=== PATIENT | male | born 1965 | race Caucasian/White ===

== ENCOUNTER 2018-04-02 22:29 | Emergency (ER) | payer MEDICAID ==
[~2018-04-02] VITALS: Ht 167.6 cm; Wt 102.5 kg
[~2018-04-02 22:29] MED LIST: ALBU8.5H8 INH; ALBU8HFA PO; ATOR10TA87 PO; AZIT250T PO; CLON-527 PO; HYDR-569 PO; IBUP-1984 PO; LISI-600 PO; NOR5T PO
[2018-04-02] MEDS ORDERED: normal saline 1000ML IV soln IV ONE (22:50)
[2018-04-02] MEDS ORDERED: morphine 4 MG/ML inj SYRINge IV ONE (23:05)
[2018-04-02 23:08] LABS: CLARITY,URINE Clear (Clear); COLOR,URINE Yellow (Yellow); GLUCOSE, URINE Negative (Neg); KETONES,URINE Negative (Neg); LEUKOCYTE ESTERASE ,URINE Negative (Neg); NITRITES, URINE Negative (Neg); OCCULT BLOOD,URINE Negative (Neg); PROTEIN,URINE Negative (Neg); UROBILINOGEN,URINE 0.2 E.U/dL (0.2-1.0)
[2018-04-02 23:11] LABS: UA COLLECTION TYPE CLN CATCH MIDSTREAM
[2018-04-02 23:33] LABS: URINE AMPHETAMINE SCREEN NEGATIVE (Neg); URINE BARBITUATE SCREEN NEGATIVE (Neg); URINE BENZODIAZEPINES SCREEN POSITIVE (Neg); URINE CANNABINOID SCREEN NEGATIVE (Neg); URINE COCAINE SCREEN NEGATIVE (Neg); URINE METHADONE SCREEN NEGATIVE (Neg); URINE OPIATE SCREEN NEGATIVE (Neg); URINE PHENCYCLIDINE SCREEN NEGATIVE (Neg)
[2018-04-02 23:37] LABS: BASOPHILS # (AUTO) 0.1 X10'3 (0-0.2); BASOPHILS % (AUTO) 0.6 % (0-1); EOSINOPHILS # (AUTO) 0.3 X10'3 (0-0.9); EOSINOPHILS % (AUTO) 2.5 % (0-6); HEMATOCRIT 37.6 % (42.0-52.0); LYMPHOCYTES # (AUTO) 0.7 X10'3 (1.1-4.8); LYMPHOCYTES % (AUTO) 7.1 % (21-51); MEAN CORPUSCULAR HEMOGLOBIN 29.1 PG (27.0-31.0); MEAN CORPUSCULAR HGB CONC 34.6 % (33.0-36.5); MEAN CORPUSCULAR VOLUME 84.3 FL (78-98); MEAN PLATELET VOLUME 8.6 FL (7.4-10.4); MONOCYTES # (AUTO) 0.8 X10'3 (0-0.9); MONOCYTES % (AUTO) 7.8 % (2-12); NEUTROPHILS # (AUTO) 8.2 X10'3 (1.8-7.7); PLATELET COUNT 193 X10'3 (140-440); RED BLOOD COUNT 4.46 X10'6 (4.70-6.10); RED CELL DISTRIBUTION WIDTH 14.3 % (11.5-14.5)
[2018-04-03 00:01] LABS: ALANINE AMINOTRANSFERASE 28 U/L (12-78); ALBUMIN 3.9 G/DL (3.4-5.0); ALBUMIN/GLOBULIN RATIO 0.9 (1.1-1.5); ALKALINE PHOSPHATASE 87 IU/L (46-116); ANION GAP 9 (8-16); ASPARTATE AMINO TRANSFERASE 17 U/L (10-37); BILIRUBIN,TOTAL 0.3 MG/DL (0.1-1.0); BLOOD UREA NITROGEN 21 MG/DL (7-18); BUN/CREATININE RATIO 16.2 (5.4-32.0); CALCIUM 8.7 MG/DL (8.5-10.1); CHLORIDE 103 MMOL/L (99-107); GLUCOSE 97 MG/DL (70-104); POTASSIUM 3.9 MMOL/L (3.5-5.1); SODIUM 138 MMOL/L (135-145); TOTAL CARBON DIOXIDE 26.2 MMOL/L (24-32); TOTAL PROTEIN 8.1 G/DL (6.4-8.2); eGFR 58 ML/MIN
[2018-04-03] MEDS ORDERED: CEPH-571 PO (00:01)
[2018-04-03] MEDS ORDERED: HYDR-569 PO (00:01)
[2018-04-03] MEDS ORDERED: DOXY100C43 PO (00:01)
[2018-04-03] MEDS ORDERED: vancomycin inj 1,000 MG in normal saline 250ml IV soln 250 ML IV STA (00:02)
[2018-04-03] MEDS ORDERED: vancomycin/NS 1 GM ADD-VANTAGE 250 ML IV ONE (00:05)
[2018-04-03 01:39] VITALS: BP 113/69
== END 2018-04-03 02:11 | disposition home or self-care (01) ==
LOC: ER 22:29
DX: L97.519 Non-pressure chronic ulcer of other part of right foot with unspecified severity (principal); I10 Essential (primary) hypertension; J45.909 Unspecified asthma, uncomplicated; Z79.899 Other long term (current) drug therapy
CPT/HCPCS: 36415; 73630; 80053; 80305; 81003; 83605; 85025; 87040; 87077; 87186; 93005; 96365; 96366; 96375; 99285; J2270; J3370; J7030

== ENCOUNTER 2018-04-09 08:50 | Outpatient (CLI) | payer MEDICAID ==
[~2018-04-09 08:50] MED LIST changes: +CEPH-571 PO; +DOXY100C43 PO
[2018-04-09] MEDS ORDERED: mupirocin 2% ointment 22GM ONE (10:38)
== END 2018-04-09 10:47 | disposition home or self-care (01) ==
LOC: WOUND CARE 08:50 → EDSTATUS 09:00 → WOUND CARE 10:47
PROVIDERS: ATTEND Surgery
DX: E11.65 Type 2 diabetes mellitus with hyperglycemia (principal); L03.031 Cellulitis of right toe; L98.491 Non-pressure chronic ulcer of skin of other sites limited to breakdown of skin
CPT/HCPCS: 36416; 82948; 99215

== ENCOUNTER 2018-09-21 11:25 | Emergency (ER) | payer MEDICAID ==
[~2018-09-21] VITALS: Ht 167.6 cm; Wt 104.0 kg
[~2018-09-21 11:25] MED LIST changes: -DOXY100C43 PO; +HYDR-4383 PO; -HYDR-569 PO; -IBUP-1984 PO; -NOR5T PO
[2018-09-21 12:15] LABS: BASOPHILS % (AUTO) 0.3 % (0-1); EOSINOPHILS # (AUTO) 0.6 X10'3 (0-0.9); EOSINOPHILS % (AUTO) 6.3 % (0-6); HEMATOCRIT 39.9 % (42.0-52.0); HEMOGLOBIN 13.7 g/dl (14.0-17.9); LYMPHOCYTES # (AUTO) 1.7 X10'3 (1.1-4.8); LYMPHOCYTES % (AUTO) 16.9 % (21-51); MEAN CORPUSCULAR HEMOGLOBIN 29.4 PG (27.0-31.0); MEAN CORPUSCULAR HGB CONC 34.3 % (33.0-36.5); MEAN CORPUSCULAR VOLUME 85.7 FL (78-98); MEAN PLATELET VOLUME 7.9 FL (7.4-10.4); MONOCYTES # (AUTO) 0.7 X10'3 (0-0.9); MONOCYTES % (AUTO) 6.6 % (2-12); NEUTROPHILS % (AUTO) 69.9 % (42-75); PLATELET COUNT 266 X10'3 (140-440); RED BLOOD COUNT 4.65 X10'6 (4.70-6.10); RED CELL DISTRIBUTION WIDTH 13.6 % (11.5-14.5); WHITE BLOOD COUNT 10.1 X10'3 (4.5-11.0)
[2018-09-21 12:30] LABS: ALANINE AMINOTRANSFERASE 24 U/L (12-78); ALBUMIN 3.4 G/DL (3.4-5.0); ALBUMIN/GLOBULIN RATIO 0.8 (1.1-1.5); ALKALINE PHOSPHATASE 83 IU/L (46-116); ANION GAP 9 (8-16); ASPARTATE AMINO TRANSFERASE 15 U/L (10-37); BILIRUBIN,TOTAL 0.3 MG/DL (0.1-1.0); BLOOD UREA NITROGEN 18 MG/DL (7-18); CALCIUM 8.7 MG/DL (8.5-10.1); CHLORIDE 101 MMOL/L (99-107); CREATININE 1.29 MG/DL (0.60-1.10); GLUCOSE 118 MG/DL (70-104); POTASSIUM 4.5 MMOL/L (3.5-5.1); SODIUM 134 MMOL/L (135-145); TOTAL CARBON DIOXIDE 23.8 MMOL/L (24-32); TOTAL PROTEIN 7.6 G/DL (6.4-8.2); eGFR 58 ML/MIN
[2018-09-21] MEDS ORDERED: ondansetron/PF 4mg/2ml inj IV ONE (12:30)
[2018-09-21] MEDS ORDERED: morphine 4 MG/ML inj SYRINge IV ONE (12:30)
[2018-09-21 12:36] LABS: LIPASE 95 U/L (73-393)
[2018-09-21 12:37] LABS: INR 1.1 INR; PROTHROMBIN TIME 11.2 SECONDS (9.0-12.0)
[2018-09-21] MEDS ORDERED: iohexol 300mg/ml 100ml inj. ONE (12:52)
[2018-09-21] MEDS ORDERED: MESSAGE TO NURSING PO NR (13:00)
[2018-09-21 13:04] LABS: CLARITY,URINE CLEAR (Clear); COLOR,URINE YELLOW (Yellow); GLUCOSE, URINE NEGATIVE (Neg); KETONES,URINE NEGATIVE (Neg); LEUKOCYTE ESTERASE ,URINE NEGATIVE (Neg); NITRITES, URINE NEGATIVE (Neg); OCCULT BLOOD,URINE NEGATIVE (Neg); PROTEIN,URINE NEGATIVE (Neg); UROBILINOGEN,URINE 0.2 E.U/dL (0.2-1.0)
[2018-09-21 13:07] LABS: UA COLLECTION TYPE VOIDED
[2018-09-21] MEDS ORDERED: ketorolac trometh. 30mg/ml inj. IV ONE (14:05)
[2018-09-21] MEDS ORDERED: DICY10CA88 PO (14:11)
[2018-09-21] MEDS ORDERED: PANT-47 PO (14:11)
[2018-09-21 14:36] VITALS: BP 106/60
== END 2018-09-21 14:37 | disposition home or self-care (01) ==
LOC: ER 11:25
DX: K52.9 Noninfective gastroenteritis and colitis, unspecified (principal); E86.0 Dehydration; I10 Essential (primary) hypertension; J45.909 Unspecified asthma, uncomplicated
CPT/HCPCS: 36415; 74177; 80053; 81003; 83690; 85025; 85610; 96374; 96375; 99284; J1885; J2270; J2405; Q9967

== ENCOUNTER 2023-07-29 05:38 | Inpatient (IN) | payer MEDICAID ==
[2023-07-22 10:09] LABS: BASOPHILS # (AUTO) 0.1 X10'3 (0-0.2); BASOPHILS % (AUTO) 0.7 % (0-1); EOSINOPHILS # (AUTO) 0.2 X10'3 (0-0.9); EOSINOPHILS % (AUTO) 2.3 % (0-6); LYMPHOCYTES # (AUTO) 1.9 X10'3 (1.1-4.8); LYMPHOCYTES % (AUTO) 25.1 % (21-51); MEAN CORPUSCULAR HEMOGLOBIN 30.9 PG (27.0-31.0); MEAN CORPUSCULAR HGB CONC 34.8 g/dL (33.0-36.5); MEAN CORPUSCULAR VOLUME 88.8 FL (78-98); MEAN PLATELET VOLUME 8.4 FL (7.4-10.4); MONOCYTES # (AUTO) 0.7 X10'3 (0-0.9); MONOCYTES % (AUTO) 8.8 % (2-12); NEUTROPHILS # (AUTO) 4.8 X10'3 (1.8-7.7); NEUTROPHILS % (AUTO) 63.1 % (42-75); PRE OP HEMOGLOBIN 13.9 g/dL (14.0-17.9); PRE OP PLATELET COUNT 202 X10'3 (140-440); PRE OP WHITE BLOOD COUNT 7.7 10'3 (4.8-10.8)
[2023-07-22 10:24] LABS: ALBUMIN 3.8 G/DL (3.4-5.0); ALKALINE PHOSPHATASE 85 IU/L (46-116); BLOOD UREA NITROGEN 15 MG/DL (7-18); BUN/CREATININE RATIO 13.8 (10.0-20.0); CALCIUM 8.7 MG/DL (8.5-10.1); CHLORIDE 103 MMOL/L (99-107); CREATININE 1.09 MG/DL (0.60-1.10); PRE OP ALT 35 U/L (30-65); PRE OP ANION GAP 7 (8-16); PRE OP AST 24 U/L (10-37); PRE OP BILIRUB, TOTAL 0.5 MG/DL (0.0-1.0); PRE OP GLUCOSE 125 MG/DL (70-104); PRE OP POTASSIUM 4.1 MMOL/L (3.4-5.1); PRE OP SODIUM 136 MMOL/L (135-145); TOTAL CARBON DIOXIDE 25.6 MMOL/L (24-32); TOTAL PROTEIN 7.6 G/DL (6.4-8.2); eGFR 70 ML/MIN
[2023-07-22 10:25] LABS: HEMOGLOBIN A1C 5.9 % (4.5-6.2)
[~2023-07-29] VITALS: Ht 167.6 cm; Wt 122.0 kg
[2023-07-29] VITALS (49 sets, daily range): BP systolic 89–147; BP diastolic 55–90; PULSE 68–100; RESP 10–21; TEMP 96.5–98.6; O2SAT 90–100
[~2023-07-29 05:38] MED LIST changes: -ALBU8.5H8 INH; -AZIT250T PO; -CEPH-571 PO; -CLON-527 PO; +CLON-528 PO; +FLUT16SP2 BOTHNARES; -HYDR-4383 PO; -LISI-600 PO; +LISI10TA27 PO; +LORA10TA7 PO; +METF-900 PO; +TERA2CAP4 PO; +cefazolin 2gm/D5W 100mL 100 ML IV ONE; +famotidine 20mg tablet PO ONE; +ringers solution, lacted 1,000 ML IV SCH; +tranexamic acid 650mg tablet PO ONE; +vancomycin 1,500 MG in NS 300ml IV soln IV ONE
[2023-07-29] MEDS ORDERED: BUPIVACAINE/MELOXICAM 14 ML VIAL IL ONE (08:22)
[2023-07-29] MEDS ORDERED: ondansetron/PF 4mg/2ml inj ONE (10:03)
[2023-07-29] MEDS ORDERED: BUPIVAcaine/dex-water/PF 7.5 mg/ml 2ml ampul ONE (10:03)
[2023-07-29] MEDS ORDERED: desflurane 240ml liquid inh. IH ONE (10:03)
[2023-07-29] MEDS ORDERED: dexamethasone sod phosphate 10mg/ml inj ONE (10:03)
[2023-07-29] MEDS ORDERED: tetracaine 1% (10mg/ml) pres. free inj. ONE (10:05)
[2023-07-29] MEDS ORDERED: MIDAZolam 1mg/ml 10ml vial ONE ×2 (10:07→10:20)
[2023-07-29] MEDS ORDERED: fentaNYL/PF 50MCG/1 ML 2ML syringe ONE (10:20)
[2023-07-29] MEDS ORDERED: propofol inj 20 ML IV ONE ×2 (10:31)
[2023-07-29] MEDS ORDERED: ROPIVAcaine 0.5% (5mg/ml) 30ml vial ONE ×2 (10:51)
[2023-07-29] MEDS ORDERED: ePHEDrine 50MG/ML INJ. ONE (10:57)
[2023-07-29] MEDS ORDERED: ondansetron/PF 4mg/2ml inj IV PRN ×2 (11:05→12:20)
[2023-07-29] MEDS ORDERED: morphine 4 MG/ML inj SYRINge IV PRN (11:05)
[2023-07-29] MEDS ORDERED: hydrALAZINE 20mg/ml inj. IV PRN (11:05)
[2023-07-29] MEDS ORDERED: labetalol 20mg/4ml (5mg/ml) syringe IV PRN (11:05)
[2023-07-29] MEDS ORDERED: fentaNYL/PF 50MCG/1 ML 2ML syringe IV PRN ×2 (11:05)
[2023-07-29] MEDS ORDERED: ringers solution, lacted 1,000 ML IV SCH (11:05)
[2023-07-29] MEDS ORDERED: bisacodyl 10mg suppository rectal RC PRN (12:20)
[2023-07-29] MEDS ORDERED: oxyCODONE IR 5mg (immed. release) tablet PO PRN (12:20)
[2023-07-29] MEDS ORDERED: HYDROmorphone 1 mg/ml syringe IV PRN (12:20)
[2023-07-29] MEDS ORDERED: diphenhydrAMINE 25mg capsule PO PRN ×2 (12:20)
[2023-07-29] MEDS ORDERED: acetaminophen 325mg tablet PO PRN (12:20)
[2023-07-29] MEDS ORDERED: naloxone 0.4 mg/ml inj IV PRN (12:20)
[2023-07-29] MEDS ORDERED: HYDROmorphone inj. 0.5 MG/0.5 ML DISP.SYRIN IV PRN (12:20)
[2023-07-29] MEDS ORDERED: magnesium hydroxide 30ml (MOM) UD suspension PO PRN (12:20)
[2023-07-29] MEDS: acetaminophen 325mg tablet PO SCH ×2 (14:23→19:48)
[2023-07-29] MEDS: morphine 2 MG/ML inj. syringe IV PRN ×2 (14:27→17:27)
[2023-07-29] MEDS: oxyCODONE IR 5mg (immed. release) tablet PO PRN ×2 (15:48→19:48)
[2023-07-29] MEDS: ceFAZolin/D5W- 1GM premix 50 ML IV SCH (16:19)
[2023-07-29] MEDS: potassium cl 20mEq in 1/2 NS 1,000 ML IV SCH ×2 (17:40→20:20)
[2023-07-29] MEDS: metFORMIN 500mg tablet PO SCH (19:47)
[2023-07-29] MEDS ORDERED: vancomycin/NS 1 GM ADD-VANTAGE 250 ML IV SCH (20:00)
[2023-07-29] MEDS: clonazePAM 0.5mg tablet PO SCH ×2 (21:00→21:12)
[2023-07-29] MEDS: sennosides 8.6mg tablet PO SCH (21:11)
[2023-07-29] MEDS: Terazosin 1mg capsule PO SCH (21:12)
[2023-07-29] MEDS: atorvastatin 10mg tablet PO SCH (21:12)
[2023-07-30] VITALS (7 sets, daily range): BP systolic 94–129; BP diastolic 54–78; PULSE 84–112; RESP 16–19; TEMP 98.1–99.5; O2SAT 94–99
[2023-07-30] MEDS: ceFAZolin/D5W- 1GM premix 50 ML IV SCH (00:27)
[2023-07-30] MEDS: oxyCODONE IR 5mg (immed. release) tablet PO PRN ×6 (01:53→21:44)
[2023-07-30] MEDS: acetaminophen 325mg tablet PO SCH ×4 (02:09→20:26)
[2023-07-30] MEDS: potassium cl 20mEq in 1/2 NS 1,000 ML IV SCH ×3 (04:20→20:15)
[2023-07-30 06:34] LABS: BASOPHILS % (AUTO) 0.1 % (0-1); EOSINOPHILS % (AUTO) 0.3 % (0-6); HEMATOCRIT 33.7 % (42.0-52.0); HEMOGLOBIN 11.5 g/dl (14.0-17.9); LYMPHOCYTES # (AUTO) 1.6 X10'3 (1.1-4.8); LYMPHOCYTES % (AUTO) 15.3 % (21-51); MEAN CORPUSCULAR HEMOGLOBIN 30.9 PG (27.0-31.0); MEAN CORPUSCULAR HGB CONC 34.2 g/dL (33.0-36.5); MEAN CORPUSCULAR VOLUME 90.3 FL (78-98); MEAN PLATELET VOLUME 8.9 FL (7.4-10.4); MONOCYTES # (AUTO) 1.4 X10'3 (0-0.9); MONOCYTES % (AUTO) 13.5 % (2-12); NEUTROPHILS # (AUTO) 7.4 X10'3 (1.8-7.7); NEUTROPHILS % (AUTO) 70.8 % (42-75); PLATELET COUNT 173 X10'3 (140-440); RED BLOOD COUNT 3.74 X10'6 (4.70-6.10); WHITE BLOOD COUNT 10.4 X10'3 (4.5-11.0)
[2023-07-30 06:39] LABS: ANION GAP 7 (8-16); CHLORIDE 102 MMOL/L (99-107); POTASSIUM 4.2 MMOL/L (3.5-5.1); SODIUM 135 MMOL/L (135-145); TOTAL CARBON DIOXIDE 26.4 MMOL/L (24-32)
[2023-07-30] MEDS: loratadine 10mg tablet PO SCH (08:00)
[2023-07-30] MEDS: fluticasone nasal spray 16GM bottle NS SCH (08:00)
[2023-07-30] MEDS: metFORMIN 500mg tablet PO SCH ×2 (09:52→17:31)
[2023-07-30] MEDS: aspirin 325mg tablet PO SCH (09:54)
[2023-07-30] MEDS: lisinopril 10 MG tablet PO SCH (09:54)
[2023-07-30] MEDS: sennosides 8.6mg tablet PO SCH (20:25)
[2023-07-30] MEDS: atorvastatin 10mg tablet PO SCH (20:26)
[2023-07-30] MEDS: Terazosin 1mg capsule PO SCH (20:26)
[2023-07-30] MEDS: clonazePAM 0.5mg tablet PO SCH (21:43)
[2023-07-31] MEDS: acetaminophen 325mg tablet PO SCH ×2 (01:43→08:31)
[2023-07-31] MEDS: oxyCODONE IR 5mg (immed. release) tablet PO PRN ×3 (01:44→10:30)
[2023-07-31 03:14] VITALS: RESP 16; O2SAT 94
[2023-07-31 06:00] VITALS: BP 114/63; PULSE 102; RESP 18; TEMP 98.9; O2SAT 97
[2023-07-31 06:47] LABS: BASOPHILS % (AUTO) 0.3 % (0-1); EOSINOPHILS # (AUTO) 0.1 X10'3 (0-0.9); HEMOGLOBIN 11.6 g/dl (14.0-17.9); LYMPHOCYTES # (AUTO) 2.2 X10'3 (1.1-4.8); LYMPHOCYTES % (AUTO) 19.5 % (21-51); MEAN CORPUSCULAR HEMOGLOBIN 30.6 PG (27.0-31.0); MEAN CORPUSCULAR VOLUME 89.9 FL (78-98); MONOCYTES # (AUTO) 1.5 X10'3 (0-0.9); MONOCYTES % (AUTO) 13.7 % (2-12); NEUTROPHILS # (AUTO) 7.3 X10'3 (1.8-7.7); NEUTROPHILS % (AUTO) 65.5 % (42-75); PLATELET COUNT 178 X10'3 (140-440); RED BLOOD COUNT 3.78 X10'6 (4.70-6.10); RED CELL DISTRIBUTION WIDTH 13.4 % (11.5-14.5); WHITE BLOOD COUNT 11.1 X10'3 (4.5-11.0)
[2023-07-31 08:00] VITALS: RESP 18; O2SAT 97
[2023-07-31] MEDS: loratadine 10mg tablet PO SCH (08:31)
[2023-07-31] MEDS: fluticasone nasal spray 16GM bottle NS SCH (08:32)
[2023-07-31] MEDS: aspirin 325mg tablet PO SCH (08:32)
[2023-07-31] MEDS: lisinopril 10 MG tablet PO SCH (08:32)
[2023-07-31] MEDS: metFORMIN 500mg tablet PO SCH (08:33)
[2023-07-31 10:00] VITALS: BP 119/56; PULSE 107; RESP 20; TEMP 98.4; O2SAT 94
[2023-07-31 10:30] VITALS: RESP 16
[2023-07-31] MEDS ORDERED: acetaminophen 325mg tablet PO PRN (12:20)
== END 2023-07-31 11:55 | disposition home or self-care (01) | DRG 326 ==
LOC: PAS IN 05:38 → ORTHO 4S 18:08
PROVIDERS: ADMIT Orthopaedic Surgery; ATTEND Orthopaedic Surgery
PROC: 3E0T3BZ Introduction of Anesthetic Agent into Peripheral Nerves and Plexi, Percutaneous Approach (ICD-10-PCS; 2023-07-29)
PROC: 8E0Y0CZ Robotic Assisted Procedure of Lower Extremity, Open Approach (ICD-10-PCS; 2023-07-29)
PROC: 8E0YXBZ Computer Assisted Procedure of Lower Extremity (ICD-10-PCS; 2023-07-29)
PROC: 0SRC0JZ Replacement of Right Knee Joint with Synthetic Substitute, Open Approach (ICD-10-PCS; principal; 2023-07-29 10:03)
DX: M17.0 Bilateral primary osteoarthritis of knee (principal); E11.9 Type 2 diabetes mellitus without complications; F41.9 Anxiety disorder, unspecified; I10 Essential (primary) hypertension; M21.161 Varus deformity, not elsewhere classified, right knee; K21.9 Gastro-esophageal reflux disease without esophagitis; G47.30 Sleep apnea, unspecified; E78.5 Hyperlipidemia, unspecified; G89.4 Chronic pain syndrome; F31.9 Bipolar disorder, unspecified; J45.909 Unspecified asthma, uncomplicated; N40.0 Benign prostatic hyperplasia without lower urinary tract symptoms; E66.01 Morbid (severe) obesity due to excess calories; Z68.41 Body mass index [BMI] 40.0-44.9, adult; Z80.42 Family history of malignant neoplasm of prostate
CPT/HCPCS: 36415; 80051; 80053; 82948; 83036; 85025; 87081; 97110; 97161; 97530; A4215; A7000; C1758; C1776; G0378; J0690; J1100; J1170; J2250; J2270; J2405; J2704; J2795; J3010; J3370; J3480; J3490; J7120

== ENCOUNTER 2024-08-10 07:30 | Inpatient (IN) | payer MEDICAID ==
[2024-08-05 10:26] LABS: BASOPHILS % (AUTO) 0.5 % (0-1); EOSINOPHILS # (AUTO) 0.2 X10'3 (0-0.9); EOSINOPHILS % (AUTO) 2.1 % (0-6); LYMPHOCYTES # (AUTO) 2.2 X10'3 (1.1-4.8); LYMPHOCYTES % (AUTO) 29.5 % (21-51); MEAN CORPUSCULAR HEMOGLOBIN 30.5 PG (27.0-31.0); MEAN CORPUSCULAR HGB CONC 34.7 g/dL (33.0-36.5); MEAN CORPUSCULAR VOLUME 87.8 FL (78-98); MEAN PLATELET VOLUME 8.1 FL (7.4-10.4); MONOCYTES # (AUTO) 0.7 X10'3 (0-0.9); MONOCYTES % (AUTO) 9.2 % (2-12); NEUTROPHILS # (AUTO) 4.4 X10'3 (1.8-7.7); NEUTROPHILS % (AUTO) 58.7 % (42-75); PRE OP HEMATOCRIT 41.1 % (42.0-52.0); PRE OP HEMOGLOBIN 14.3 g/dL (14.0-17.9); PRE OP PLATELET COUNT 257 X10'3 (140-440); PRE OP WHITE BLOOD COUNT 7.6 10'3 (4.8-10.8); RED BLOOD COUNT 4.69 X10'6 (4.70-6.10)
[2024-08-05 10:42] LABS: ALBUMIN 3.8 G/DL (3.4-5.0); ALBUMIN/GLOBULIN RATIO 0.9 (1.1-1.5); ALKALINE PHOSPHATASE 93 IU/L (46-116); BLOOD UREA NITROGEN 10 MG/DL (7-18); BUN/CREATININE RATIO 9.3 (10.0-20.0); CALCIUM 8.9 MG/DL (8.5-10.1); CHLORIDE 105 MMOL/L (99-107); CREATININE 1.07 MG/DL (0.60-1.10); PRE OP ALT 37 U/L (30-65); PRE OP ANION GAP 10 (8-16); PRE OP AST 17 U/L (10-37); PRE OP BILIRUB, TOTAL 0.6 MG/DL (0.0-1.0); PRE OP GLUCOSE 110 MG/DL (70-104); PRE OP POTASSIUM 4.2 MMOL/L (3.4-5.1); PRE OP SODIUM 140 MMOL/L (135-145); TOTAL CARBON DIOXIDE 25.2 MMOL/L (24-32); TOTAL PROTEIN 7.9 G/DL (6.4-8.2); eGFR 71 ML/MIN
[2024-08-05 11:05] LABS: HEMOGLOBIN A1C 5.6 % (4.5-6.2)
[~2024-08-10] VITALS: Ht 167.6 cm; Wt 115.7 kg
[2024-08-10] VITALS (26 sets, daily range): BP systolic 107–139; BP diastolic 62–90; PULSE 68–96; RESP 12–18; TEMP 97.6–99.1; O2SAT 0–99
[2024-08-10] MEDS: ceFAZolin 2gm in dextrose, iso 50 ML IV ONE (05:30)
[~2024-08-10 07:30] MED LIST changes: +ALBU18HF2 INH; -ALBU8HFA PO; +ATOR10TA70 PO; -ATOR10TA87 PO; -CLON-528 PO; +CLON-850 PO; +TRAM50TA2 PO; -cefazolin 2gm/D5W 100mL 100 ML IV ONE; -famotidine 20mg tablet PO ONE; -ringers solution, lacted 1,000 ML IV SCH; -tranexamic acid 650mg tablet PO ONE; -vancomycin 1,500 MG in NS 300ml IV soln IV ONE
[2024-08-10] MEDS: ringers solution, lacted 1,000 ML IV SCH ×2 (09:25→13:25)
[2024-08-10] MEDS: VANCOMYCIN 1,500MG inj. 1,500 MG in normal saline 500ml IV soln 300 ML IV ONE (09:26)
[2024-08-10] MEDS: famotidine 20mg tablet PO ONE (09:26)
[2024-08-10] MEDS: tranexamic acid 650mg tablet PO ONE (09:26)
[2024-08-10] MEDS ORDERED: fentaNYL/PF 50MCG/1 ML 2ML syringe ONE ×3 (10:27→13:47)
[2024-08-10] MEDS ORDERED: MIDAZolam 1 MG/ML 5ML VIAL ONE ×2 (10:28→12:43)
[2024-08-10] MEDS ORDERED: LIDOcaine 0.5% (5mg/ml) 50ml vial ONE (11:19)
[2024-08-10] MEDS ORDERED: ketorolac trometh 30MG/ML vial 30 MG/ML VIAL ONE (11:20)
[2024-08-10] MEDS ORDERED: ROPIVAcaine 0.5% (5mg/ml) 30ml vial ONE (11:20)
[2024-08-10] MEDS ORDERED: BUPIVAcaine 0.5% inj/PF 30 ML ONE (11:41)
[2024-08-10] MEDS ORDERED: tetracaine 1% (10mg/ml) pres. free inj. ONE (11:41)
[2024-08-10] MEDS ORDERED: sevoflurane 250ml liquid IH ONE (12:40)
[2024-08-10] MEDS ORDERED: propofol inj 20 ML IV ONE (13:05)
[2024-08-10] MEDS ORDERED: dexamethasone sod phosphate 4mg/ml inj. ONE (13:08)
[2024-08-10] MEDS ORDERED: ondansetron/PF 4mg/2ml inj IV PRN ×2 (13:25→16:25)
[2024-08-10] MEDS ORDERED: enalaprilat dihydrate 2.5mg/2ml vial IV PRN (13:25)
[2024-08-10] MEDS ORDERED: morphine 2 MG/ML inj. syringe IV PRN (13:25)
[2024-08-10] MEDS ORDERED: fentaNYL/PF 50MCG/1 ML 2ML syringe IV PRN (13:25)
[2024-08-10] MEDS ORDERED: labetalol 20mg/4ml (5mg/ml) syringe IV PRN (13:25)
[2024-08-10 15:28] LABS: APPEARANCE,SYNOVIAL FLUID HAZY; COLOR,SYNOVIAL FLUID YELLOW; LYMPHOCYTES,SYNOVIAL FLUID 60 % (0-75); MONOCYTES,SYNOVIAL FLUID 24 % (0-0); NEUTROPHILS,SYNOVIAL FLUID 16 % (0-25); SYN RBC 12400 /CU MM (0); SYN WBC 638 /CU MM (0-200)
[2024-08-10 15:29] LABS: OTHER CELLS, SYNOVIAL FLUID MODERATE
[2024-08-10] MEDS: morphine 4 MG/ML inj SYRINge IV PRN (15:58)
[2024-08-10] MEDS ORDERED: naloxone 0.4 mg/ml inj IV PRN (16:25)
[2024-08-10] MEDS ORDERED: bisacodyl 10mg suppository rectal RC PRN (16:25)
[2024-08-10] MEDS ORDERED: diphenhydrAMINE 25mg capsule PO PRN ×2 (16:25)
[2024-08-10] MEDS ORDERED: magnesium hydroxide 30ml (MOM) UD suspension PO PRN (16:25)
[2024-08-10] MEDS ORDERED: HYDROmorphone inj. 0.5 MG/0.5 ML DISP.SYRIN IV PRN (16:25)
[2024-08-10] MEDS ORDERED: albuterol 2.5 MG/3 ML nebule NEB PRN (16:25)
[2024-08-10] MEDS ORDERED: acetaminophen 325mg tablet PO PRN (16:25)
[2024-08-10] MEDS ORDERED: oxyCODONE IR 5mg (immed. release) tablet PO PRN (16:25)
[2024-08-10] MEDS: fentaNYL/PF 50MCG/1 ML 2ML syringe IV PRN (16:36)
[2024-08-10] MEDS: traMADol 50MG tablet PO SCH (17:00)
[2024-08-10] MEDS: potassium cl 20mEq in 1/2 NS 1,000 ML IV SCH (18:07)
[2024-08-10] MEDS: atorvastatin 10mg tablet PO SCH (21:16)
[2024-08-10] MEDS: Terazosin 1mg capsule PO SCH (21:17)
[2024-08-10] MEDS: clonazePAM 0.5mg tablet PO SCH (21:17)
[2024-08-10] MEDS: acetaminophen 325mg tablet PO SCH (21:18)
[2024-08-10] MEDS: sennosides 8.6mg tablet PO SCH (21:19)
[2024-08-10] MEDS: VANCOMYCIN 1GM 200ML H20 (PEG) 200 ML IV SCH (21:23)
[2024-08-10] MEDS: HYDROmorphone 1 mg/ml syringe IV PRN (22:28)
[2024-08-10] MEDS: ceFAZolin/D5W- 1GM premix 50 ML IV SCH (23:58)
[2024-08-11] VITALS (10 sets, daily range): BP systolic 110–135; BP diastolic 47–81; PULSE 79–108; RESP 16–18; TEMP 96.8–98.6; O2SAT 95–97
[2024-08-11] MEDS: oxyCODONE IR 5mg (immed. release) tablet PO PRN (01:32)
[2024-08-11] MEDS: loratadine 10mg tablet PO SCH (08:11)
[2024-08-11] MEDS: aspirin 325mg tablet PO SCH (08:11)
[2024-08-11] MEDS: lisinopril 10 MG tablet PO SCH (08:11)
[2024-08-11] MEDS: metFORMIN 500mg tablet PO SCH (08:11)
[2024-08-11] MEDS: fluticasone nasal spray 16GM bottle NS SCH (08:12)
[2024-08-11] MEDS: celeCOXIB 100mg capsule PO SCH (20:09)
[2024-08-12 06:00] VITALS: BP 111/68; PULSE 84; RESP 16; TEMP 97.3; O2SAT 98
[2024-08-12 06:25] LABS: BASOPHILS % (AUTO) 0.3 % (0-1); EOSINOPHILS # (AUTO) 0.1 X10'3 (0-0.9); EOSINOPHILS % (AUTO) 1.3 % (0-6); HEMOGLOBIN 11.2 g/dl (14.0-17.9); LYMPHOCYTES # (AUTO) 2.3 X10'3 (1.1-4.8); MEAN CORPUSCULAR VOLUME 88.6 FL (78-98); MEAN PLATELET VOLUME 8.6 FL (7.4-10.4); MONOCYTES # (AUTO) 1.2 X10'3 (0-0.9); MONOCYTES % (AUTO) 12.4 % (2-12); NEUTROPHILS # (AUTO) 5.9 X10'3 (1.8-7.7); PLATELET COUNT 209 X10'3 (140-440); RED BLOOD COUNT 3.61 X10'6 (4.70-6.10); WHITE BLOOD COUNT 9.5 X10'3 (4.5-11.0)
[2024-08-12 08:16] VITALS: BP_SYST 111; PULSE 84
[2024-08-12 09:55] VITALS: RESP 16
[2024-08-12 10:10] VITALS: RESP 16
[2024-08-12] MEDS ORDERED: acetaminophen 325mg tablet PO PRN (18:20)
== END 2024-08-12 10:35 | disposition home or self-care (01) | DRG 309 ==
LOC: PAS IN 08:02 → ORTHO 4S 17:26
PROVIDERS: ADMIT Orthopaedic Surgery; ATTEND Orthopaedic Surgery
PROC: 3E0T3BZ Introduction of Anesthetic Agent into Peripheral Nerves and Plexi, Percutaneous Approach (ICD-10-PCS; 2024-08-10)
PROC: 0QBB0ZZ Excision of Right Lower Femur, Open Approach (ICD-10-PCS; principal; 2024-08-10 12:40)
DX: D16.21 Benign neoplasm of long bones of right lower limb (principal); E11.9 Type 2 diabetes mellitus without complications; F41.9 Anxiety disorder, unspecified; I10 Essential (primary) hypertension; N40.0 Benign prostatic hyperplasia without lower urinary tract symptoms; K21.9 Gastro-esophageal reflux disease without esophagitis; E78.5 Hyperlipidemia, unspecified; Z96.651 Presence of right artificial knee joint
CPT/HCPCS: 36415; 80053; 82948; 83036; 85025; 87070; 87075; 87081; 89051; 93005; 94760; 97110; 97161; 97530; A4615; A4618; A6258; A6449; A7000; C1713; C1758; C1776; G0378; J0690; J1100; J1171; J1885; J2003; J2250; J2270; J2405; J2704; J2795; J3010; J3370; J3372; J3480; J3490; J7030; J7040; J7120